=== PATIENT | male | born 1985 | race Caucasian/White ===

== ENCOUNTER 2018-03-13 23:34 | Emergency (ER) | payer MEDICAID ==
[~2018-03-13] VITALS: Ht 175.3 cm; Wt 90.7 kg
[2018-03-13 23:35] VITALS: BP_SYST 156
[2018-03-13 23:46] VITALS: BP_SYST 156
== END 2018-03-13 23:45 ==
LOC: SED 23:34
DX: Z02.89 Encounter for other administrative examinations (principal); R03.0 Elevated blood-pressure reading, without diagnosis of hypertension; Z95.0 Presence of cardiac pacemaker
CPT/HCPCS: 99283